=== PATIENT | female | born 1975 | race Native Hawaiian/Other Pacific Islander ===

== ENCOUNTER 2022-02-23 14:11 | Emergency (ER) | payer OTHER ==
[~2022-02-23] VITALS: Ht 167.6 cm; Wt 68.0 kg
[2022-02-23 14:18] VITALS: BP 159/82; TEMP 98.3
== END 2022-02-23 16:00 | disposition home or self-care (01) ==
LOC: ED 14:11
PROC: 0HQFXZZ Repair Right Hand Skin, External Approach (ICD-10-PCS; principal; 2022-02-23)
DX: S61.411A Laceration without foreign body of right hand, initial encounter (principal); S60.414A Abrasion of right ring finger, initial encounter; S61.230A Puncture wound without foreign body of right index finger without damage to nail, initial encounter; S61.246A Puncture wound with foreign body of right little finger without damage to nail, initial encounter; X58.XXXA Exposure to other specified factors, initial encounter; Y92.89 Other specified places as the place of occurrence of the external cause
CPT/HCPCS: 90471; 90715; 99283; J2001

== ENCOUNTER 2022-07-19 16:43 | Emergency (ER) | payer OTHER ==
[~2022-07-19] VITALS: Ht 167.6 cm; Wt 67.6 kg
[2022-07-19 17:18] LABS: PLATELET COUNT 299 K/uL (152-353)
[2022-07-19 17:22] LABS: POTASSIUM 3.6 mmol/L (3.6-5.2)
[2022-07-19 18:28] VITALS: BP 118/79; TEMP 97.7
== END 2022-07-19 18:28 | disposition home or self-care (01) ==
LOC: ED 16:43
PROVIDERS: Emergency Medicine
DX: U07.1 COVID-19 (principal); D72.828 Other elevated white blood cell count; Z79.891 Long term (current) use of opiate analgesic; F41.8 Other specified anxiety disorders
CPT/HCPCS: 80048; 80307; 85027; 96361; 96374; 99284; J2405